=== PATIENT | male | born 1985 | race Two or more races ===

== ENCOUNTER 2022-04-07 20:40 | Emergency (ER) | payer OTHER ==
[~2022-04-07] VITALS: Ht 170.2 cm; Wt 60.0 kg
[2022-04-07 20:45] VITALS: BP 124/88
== END 2022-04-08 01:36 | disposition left against medical advice (07) ==
LOC: EDBD 20:40 → ER 20:40
DX: M79.662 Pain in left lower leg (principal); M79.661 Pain in right lower leg; Z53.21 Procedure and treatment not carried out due to patient leaving prior to being seen by health care provider; X58.XXXA Exposure to other specified factors, initial encounter; Y93.89 Activity, other specified; Y92.89 Other specified places as the place of occurrence of the external cause; Y99.8 Other external cause status

== ENCOUNTER 2022-04-10 02:14 | Emergency (ER) | payer OTHER ==
[~2022-04-10] VITALS: Ht 167.6 cm; Wt 59.9 kg
[2022-04-10 08:19] VITALS: BP 112/72
[2022-04-10 08:22] LABS: Basophils # (auto) 0.1 10 ^3/uL (0-0.2); Basophils % (auto) 0.7 % (0.0-2.0); Eosinophils # (auto) 0.3 10 ^3/uL (0-0.8); Mean Corpuscular Volume 73.3 fL (80.0-100.0)
[2022-04-10 08:23] LABS: Hematocrit 27.1 % (41.0-53.0); Lymphocytes # (auto) 1.4 10 ^3/uL (0.4-5.4); Lymphocytes % (auto) 18.5 % (10.0-50.0); Mean Corpuscular Hemoglobin 24.3 pg (28.0-32.0); Mean Corpuscular Hgb Conc. 33.1 g/dL (32.0-36.0); Monocytes # (auto) 0.8 10 ^3/uL (0-1.3); Monocytes % (auto) 11.5 % (0.0-12.0); Neutrophils # (auto) 4.8 10 ^3/uL (1.6-8.6); Neutrophils % (auto) 65.3 % (37.0-80.0); Nucleated Red Blood Cells % 0.1 %; White Blood Cell 7.4 10^3/uL (4.4-10.8)
[2022-04-10 08:37] LABS: Red Cell Distribution Width 21.6 % (11.8-14.3)
[2022-04-10 08:42] LABS: Albumin 3.4 g/dL (3.4-5.0); Calcium 8.5 mg/dL (8.5-10.1)
[2022-04-10 08:45] LABS: BUN/Creatinine Ratio 26.4; Bilirubin, Total 0.3 mg/dL (0.2-1.0); Total Protein 7.2 g/dL (6.4-8.2)
[2022-04-10 09:28] LABS: Acetaminophen < 2.0 ug/mL (10-30); Salicylate < 1.7 mg/dL (2.8-20.0)
[2022-04-10 10:48] LABS: Amphetamine Screen, Urine NEGATIVE (NEGATIVE); Barbiturate Scree,Urine NEGATIVE (NEGATIVE); Benzodiazephine Screen, Urine NEGATIVE (NEGATIVE); Cannabinoid Screen, Urine POSITIVE (NEGATIVE); Cocaine Screen, Urine NEGATIVE (NEGATIVE); Opiate Scree,Urine NEGATIVE (NEGATIVE)
[2022-04-10 10:55] LABS: Alcohol, Urine < 3.0 mg/dL (0-10); Phencyclidine Screen, Urine NEGATIVE (NEGATIVE)
== END 2022-04-10 10:55 | disposition left against medical advice (07) ==
LOC: ER 02:14
DX: R45.851 Suicidal ideations (principal); Z59.00 Homelessness unspecified; Z20.822 Contact with and (suspected) exposure to COVID-19
CPT/HCPCS: 36415; 80053; 80307; 80329; 85025; 87426

== ENCOUNTER 2022-04-10 20:55 | Emergency (ER) | payer OTHER ==
[~2022-04-10] VITALS: Ht 167.6 cm; Wt 61.0 kg
[2022-04-10 21:51] VITALS: BP 118/69
[2022-04-10 23:22] LABS: Basophils # (auto) 0.1 10 ^3/uL (0-0.2); Eosinophils # (auto) 0.3 10 ^3/uL (0-0.8); Hemoglobin 8.7 g/dL (13.5-17.5); Monocytes # (auto) 0.9 10 ^3/uL (0-1.3); White Blood Cell 9.6 10^3/uL (4.4-10.8)
[2022-04-10 23:24] LABS: Basophils % (auto) 0.7 % (0.0-2.0); Eosinophils % (auto) 3.1 % (0.0-7.0); Hematocrit 26.3 % (41.0-53.0); Lymphocytes # (auto) 1.9 10 ^3/uL (0.4-5.4); Lymphocytes % (auto) 19.8 % (10.0-50.0); Mean Corpuscular Hemoglobin 24.4 pg (28.0-32.0); Mean Corpuscular Hgb Conc. 32.9 g/dL (32.0-36.0); Monocytes % (auto) 9.5 % (0.0-12.0); Neutrophils # (auto) 6.4 10 ^3/uL (1.6-8.6); Neutrophils % (auto) 66.9 % (37.0-80.0); Red Blood Cells 3.55 10^6/uL (4.5-5.90)
[2022-04-10 23:25] LABS: Red Cell Distribution Width 21.4 % (11.8-14.3)
[2022-04-10 23:39] LABS: Alanine Aminotransferase 61 U/L (16-61); Albumin 3.3 g/dL (3.4-5.0); Anion Gap 8 (5-15); Aspartate Aminotransferase 53 U/L (15-37); BUN/Creatinine Ratio 26.6; Blood Alcohol < 3.0 mg/dL (0-5); Blood Urea Nitrogen 17 mg/dL (7-18); Calcium 8.4 mg/dL (8.5-10.1); Carbon Dioxide 26 mmol/L (21-32); Chloride 107 mmol/L (98-107); GFR African American 182 mL/min; GFR Non-African American 150 mL/min; Glucose 97 mg/dL (74-106); Lipase 131 U/L (73-393); Potassium 4.1 mmol/L (3.5-5.1); Sodium 141 mmol/L (136-145)
[2022-04-10 23:42] LABS: Alkaline Phosphatase 79 U/L (45-117); Bilirubin, Total 0.2 mg/dL (0.2-1.0); Total Protein 6.9 g/dL (6.4-8.2)
== END 2022-04-10 21:56 | disposition home or self-care (01) ==
LOC: ER 20:57
DX: M79.642 Pain in left hand (principal); R22.32 Localized swelling, mass and lump, left upper limb; R45.851 Suicidal ideations; F12.10 Cannabis abuse, uncomplicated; F17.210 Nicotine dependence, cigarettes, uncomplicated; Z59.00 Homelessness unspecified
CPT/HCPCS: 36415; 80053; 80320; 80329; 83690; 84484; 85025

== ENCOUNTER 2022-06-04 03:09 | Emergency (ER) | payer OTHER ==
[~2022-06-04] VITALS: Ht 170.2 cm; Wt 80.0 kg
[2022-06-04 03:12] VITALS: BP 135/65
== END 2022-06-04 05:19 | disposition left against medical advice (07) ==
LOC: EDBD 03:09 → ER 03:09
DX: M79.641 Pain in right hand (principal); Z53.21 Procedure and treatment not carried out due to patient leaving prior to being seen by health care provider

== ENCOUNTER 2022-06-25 23:51 | Emergency (ER) | payer OTHER ==
[~2022-06-25] VITALS: Ht 172.7 cm; Wt 55.0 kg
[2022-06-26 00:36] VITALS: BP 122/64
== END 2022-06-26 08:37 | disposition left against medical advice (07) ==
LOC: EDBD 23:51 → ER 23:51
DX: M79.604 Pain in right leg (principal); M25.561 Pain in right knee; Z53.21 Procedure and treatment not carried out due to patient leaving prior to being seen by health care provider; W18.39XA Other fall on same level, initial encounter; Y93.89 Activity, other specified; Y92.89 Other specified places as the place of occurrence of the external cause; Y99.8 Other external cause status

== ENCOUNTER → 2022-07-05 | Emergency (ER) | payer MEDICAID, OTHER ==
[~2022-07-05] VITALS: Ht 172.7 cm; Wt 54.5 kg
[2022-07-05 00:54] VITALS: BP 114/76
== END | disposition left against medical advice (07) ==
LOC: EDUNIT# 00:48 → EDBD 00:49 → ER 00:49
DX: M79.672 Pain in left foot (principal); M79.671 Pain in right foot; Z59.00 Homelessness unspecified; Z53.21 Procedure and treatment not carried out due to patient leaving prior to being seen by health care provider

== ENCOUNTER 2022-07-07 01:29 | Emergency (ER) | payer MEDICAID, OTHER ==
[~2022-07-07] VITALS: Ht 177.8 cm; Wt 70.0 kg
[2022-07-07 01:29] VITALS: BP 125/86
== END 2022-07-07 06:31 | disposition left against medical advice (07) ==
LOC: EDBD 01:29 → ER 01:29
DX: M79.10 Myalgia, unspecified site (principal); Z53.21 Procedure and treatment not carried out due to patient leaving prior to being seen by health care provider

== ENCOUNTER 2022-07-07 23:48 | Emergency (ER) | payer OTHER ==
[~2022-07-07] VITALS: Ht 167.6 cm; Wt 58.2 kg
[2022-07-08 00:10] VITALS: BP 124/64
== END 2022-07-08 00:32 | disposition left against medical advice (07) ==
LOC: ER 23:48
DX: K64.9 Unspecified hemorrhoids (principal); Z53.21 Procedure and treatment not carried out due to patient leaving prior to being seen by health care provider